=== PATIENT | male | born 1955 | race Caucasian/White ===

== ENCOUNTER → 2018-05-20 | Day surgery (SDC) | payer BC ==
[~2018-05-20] MED LIST: ACETAMINOPHEN 1,000 MG/100 ML BTL IV ONE; BUPIVACAINE 0.25% W/EPI MPF 30ML VIAL IVP ONE; DEXAMETHASONE 4 MG/ML 1ML VIAL IVP ONE; FENTANYL PF 100MCG/2ML VIAL IV ONE; LIDOCAINE 2% MDV (20MG/ML) 20ML VIAL IV ONE; MIDAZOLAM HCL 2MG/2ML VIAL IV ONE; ONDANSETRON HCL IV 4 MG/2 ML VIAL IVP ONE; PROPOFOL 10 MG/ML VIAL IV ONE; SEVOFLURANE 250 ML INH ONE
[2018-05-20 10:07] LABS: BASO % 0.7 % (0-6); HEMATOCRIT 43.4 % (42.0-52.0); LYMPH % 36.2 % (16-45); MEAN CELL VOLUME 95.2 fl (81-97); MEAN CORPUSCULAR HEMOGLOBIN 32.9 pg (27-33); MEAN CORPUSCULAR HGB CONC 34.6 g/dl (32-36); MEAN PLATELET VOLUME 9.4 fl (7.4-10.4); MONO % 6.1 % (0-9); PLATELET COUNT 224 K/uL (130-400); RED BLOOD COUNT 4.56 M/uL (4.40-5.70); RED CELL DISTRIBUTION WIDTH 12.7 % (11.5-14.5); WHITE BLOOD COUNT W/O DIFF 4.6 K/uL (4.2-12.2)
[2018-05-20 10:23] LABS: CREATININE 1.4 mg/dL (0.7-1.2)
--- NOTE | 2018-05-21 15:10 | Operative Note ---
DATE OF SURGERY: 05/20/2018 Surgeon: Ori Jennings DO PREOPERATIVE DIAGNOSES: 1. Torn medial meniscus of the right knee. 2. Chondromalacia of the right knee. POSTOPERATIVE DIAGNOSES: 1. Torn medial meniscus of the right knee. 2. Synovitis right knee. 3. Chondromalacia of the right knee, patellofemoral joint, lateral tibial plateau, and medial femoral condyle. OPERATION: 1. Arthroscopic partial medial meniscectomy, right knee. 2. Arthroscopic partial synovectomy, right knee (2 compartments). 3. Arthroscopic chondroplasty of the patellofemoral joint, medial femoral condyle, and lateral tibial plateau, right knee. DESCRIPTION OF PROCEDURE: This 63-year-old male was taken to the operating room and placed in the supine position on the operating room table where general anesthesia was induced. The right lower extremity was elevated, prepped with Hibiclens, and draped in the usual sterile fashion after arthroscopic knee myrick applied and the tourniquet had been inflated to 300 mmHg. An inferolateral portal was established for the 4 mm arthroscope and initial evaluation of the joint demonstrated advanced degenerative disease of the patella, grade 3 changes as well as the same on the trochlea with multiple loose cartilaginous flaps. An inferomedial portal was established, and chondroplasty was performed. Marked synovitis was also present in the fat pad anteriorly and suprapatellar pouch. This was debrided and re-probed and confirmed that the articular cartilage was stable. We then directed our attention to the medial compartment, and synovitis was present there as well. Partial synovectomy was performed. Advanced grade 2 changes of the medial femoral condyle were present with loose cartilaginous flaps which were debrided. In addition, there was a vertical tear of the medial meniscus near the root of the meniscus and marked degenerative change present just medial to it. Utilizing the basket forceps and rotating shaver, we resected back to the apex of the tear and then tapered in each direction to restore stability to the medial meniscus. Re-probing confirmed stability. The intracondylar notch was examined and found to be normal. The lateral compartment was entered, and grade 2 degenerative change of the articular cartilage of the anterior portion of the lateral tibial plateau was present but the remainder of the articular cartilage in the lateral compartment appeared normal. The meniscus was probed and found to be normal. The patient demonstrated multiple cartilaginous loose joint bodies present within the medial and lateral compartments and medial and lateral gutters which were suctioned from the joint. The wound was copiously irrigated and suctioned. The instruments were removed. The portals infiltrated with 0.25% Marcaine with epinephrine. Single stitch placed in each portal of 4-0 nylon suture. Sterile dressings applied and the patient taken to the recovery room in satisfactory condition. GROSS PATHOLOGY: A vertical tear of the medial meniscus was present near the meniscal root and degenerative change in the meniscus was also present. Grade 3 chondromalacia at the patellofemoral joint was present and grade 2 changes noted on the medial femoral condyle and lateral tibial plateau. There were multiple cartilaginous loose joint bodies which were suctioned from the joint. CC: MD MECCA Short
== END | disposition home or self-care (01) ==
LOC: SUR 08:42
PROVIDERS: ATTEND Orthopaedic Surgery
DX: M23.203 Derangement of unspecified medial meniscus due to old tear or injury, right knee (principal); M94.261 Chondromalacia, right knee; M65.861 Other synovitis and tenosynovitis, right lower leg; Z86.718 Personal history of other venous thrombosis and embolism; Z79.01 Long term (current) use of anticoagulants
CPT/HCPCS: 85025; 80048; 29881; 01400; J2405; J3010